=== PATIENT | male | born 1985 | race Caucasian/White ===

== ENCOUNTER 2018-12-24 20:02 | Emergency (ER) | payer SELFPAY ==
[~2018-12-24] VITALS: Ht 177.8 cm; Wt 100.0 kg
[2018-12-24] MEDS ORDERED: HYDROXYZINE 25MG TABLET PO ONE (20:45)
[2018-12-24 23:08] LABS: *AMPHETAMINES SCREEN URINE NEGATIVE (NEGATIVE); *BARBITURATES SCREEN URINE NEGATIVE (NEGATIVE); *BENZODIAZEPINES SCREEN URINE NEGATIVE (NEGATIVE); *COCAINE SCREEN URINE NEGATIVE (NEGATIVE); METHADONE URINE SCREEN NEGATIVE (NEGATIVE); OPIATES URINE SCREEN NEGATIVE (NEGATIVE)
[2018-12-24 23:09] LABS: CANNABINOID URINE SCREEN NEGATIVE (NEGATIVE); PHENCYCLIDINE URINE SCREEN NEGATIVE (NEGATIVE)
[2018-12-24 23:39] VITALS: BP 101/79
== END 2018-12-24 23:40 | disposition home or self-care (01) ==
LOC: ER 20:02
DX: F41.9 Anxiety disorder, unspecified (principal); F17.200 Nicotine dependence, unspecified, uncomplicated; Z88.0 Allergy status to penicillin
CPT/HCPCS: 80305; 93005; 99284